=== PATIENT | female | born 1980 | race Hispanic/Latino ===

== ENCOUNTER 2017-04-30 15:48 | Emergency (ER) | payer OTHER ==
[2017-04-30 15:53] VITALS: BP 121/75; RESP 16; TEMP 97.5; O2SAT 98
--- NOTE | 2017-04-30 16:29 | ED PDOC ---
HPI: General Adult Time Seen by Provider: 04/30/17 15:54 Chief Complaint (Nursing): Flu-like Symptoms Chief Complaint (Provider): Back Pain, Body Aches, Cough History Per: Patient History/Exam Limitations: no limitations Current Symptoms Are (Timing): Still Present Additional Complaint(s): 37 year old female presents to the ED complaining of body aches, cough and lower back pain which began yesterday. The patient states that she was seen by her OBGYN and told to come into the emergency room. PMD: Sonia Massey Past Medical History Reviewed: Historical Data, Nursing Documentation, Vital Signs Vital Signs: Last Vital Signs Temp 97.5 F L 04/30/17 15:51 Pulse 108 H 04/30/17 15:51 Resp 16 04/30/17 15:51 BP 121/75 04/30/17 15:51 Pulse Ox 98 04/30/17 16:33 - Medical History PMH: No Chronic Diseases - Surgical History Surgical History: No Surg Hx - Family History Family History: States: Unknown Family Hx - Living Arrangements Living Arrangements: With Family - Social History Current smoker - smoking cessation education provided: No Ex-Smoker (has not smoked in the last 12 months): No Alcohol: None - Home Medications Home Medications: Ambulatory Orders Medication Instructions Recorded Oseltamivir [Tamiflu] 75 mg PO BID #10 cap 04/30/17 - Allergies Allergies/Adverse Reactions: Allergies Allergy/AdvReac Type Severity Reaction Status Date / Time No Known Allergies Allergy Verified 04/30/17 15:50 Review of Systems ROS Statement: Except As Marked, All Systems Reviewed And Found Negative Constitutional: Positive for: Other (body aches) Respiratory: Positive for: Cough Musculoskeletal: Positive for: Back Pain (lower) Physical Exam - Reviewed Nursing Documentation Reviewed: Yes Vital Signs Reviewed: Yes - Physical Exam Appears: Positive for: Uncomfortable Head Exam: Positive for: ATRAUMATIC, NORMAL INSPECTION Skin: Positive for: Normal Color, Warm, Dry. Negative for: Rash Eye Exam: Positive for: Normal appearance, EOMI, PERRL ENT: Positive for: Normal ENT Inspection. Negative for: Nasal Congestion, Tonsillar Exudate, Tonsillar Swelling Neck: Positive for: Normal Cardiovascular/Chest: Positive for: Regular Rate, Rhythm, Chest Non Tender. Negative for: Tachycardia Respiratory: Positive for: Normal Breath Sounds. Negative for: Rales, Rhonchi, Wheezing, Respiratory Distress Back: Positive for: Normal Inspection Extremity: Positive for: Normal ROM Neurologic/Psych: Positive for: Alert, Oriented, Gait - ECG O2 Sat by Pulse Oximetry: 98 (RA) Pulse Ox Interpretation: Normal Medical Decision Making Medical Decision Makin Initial Impression 37 y/o female presenting with cough, lower back pain and body aches Initial Plan: * Influenza A B * US OB * Reevaluation (+) IUP with FHT Case discussed with Dr. Street Documented by Radha Locke acting as a scribe for Bushra Gale PA-C. All medical record entries made by the Scribe were at my direction and personally dictated by me. I have reviewed the chart and agree that the record accurately reflects my personal performance of the history, physical exam, medical decision making, and the department course for this patient. I have also personally directed, reviewed, and agree with the discharge instructions and disposition. Disposition - Clinical Impression Clinical Impression: Influenza - Patient ED Disposition Is Patient to be Admitted: No Counseled Patient/Family Regarding: Diagnosis, Need For Followup - Disposition Disposition: Routine/Home Disposition Time: 18:21 Condition: GOOD Prescriptions: Oseltamivir [Tamiflu] 75 mg PO BID #10 cap Instructions: Influenza (ED) Forms: [employer] (Bel[place]ian)
[2017-04-30 18:25] VITALS: PULSE 93
--- NOTE | 2017-05-03 10:22 | US ---
OB , limited Comparison: None available Technique: Real-time ultrasound was performed through the pelvis. Findings: There is a single living fetus in breech presentation. Anterior placenta. The placenta is not previa. Bilateral ovaries are not identified. There are no adnexal masses or cysts evident. Cervix length measures approximately 5.0 cm and appears closed. Measurements and calculations: Fetus has a composite sonographic age of 16 weeks 1 day. This calculation is based on the biparietal diameter, head circumference, abdominal circumference, and femur length. Estimated heart rate 162.3 beats per min. Impression: Single living fetus with a composite sonographic age of 16 weeks 1 day. Estimated heart rate 162.3 beats per min. Advise an anomaly screen at 16-18 weeks gestational age.
== END 2017-04-30 18:35 | disposition home or self-care (01) ==
LOC: H.ER 15:48
DX: R05 Cough (principal); M79.1 Myalgia; M54.9 Dorsalgia, unspecified; O26.892 Other specified pregnancy related conditions, second trimester; Z3A.18 18 weeks gestation of pregnancy

== ENCOUNTER 2017-10-06 17:44 | Inpatient (IN) | payer OTHER ==
[2017-10-06 18:07] VITALS: BMI 29.9
[2017-10-06] MEDS: Lactated Ringer's 1,000 ML IV SCH ×4 (18:20→22:24)
--- NOTE | 2017-10-06 18:37 | OBHP ---
Datetime: 10/06/2017 18:23 IP Adm Impression: Term, intrauterine ; No Active Labor IP Admit Plan: Observation/Evaluation Admit Comment, IP Provider: Patient is a 37 y/o ega 39 weeks c/o uterine contractions x several hours duration. Pt reports recent gildardo of diarrhea and upset stomach. Patient PNC unremarkbale. Pt re ports uterine contraction no lof good fm. PMH depression ADHD meds PNV social deneis etoh tob NKDA ROS as per HPI otherwise neg vss afebrile p/e see notes IUP at 38 weeks early labor observtion routine labs IVF hydration vertex presentaton Pelvic Type - PN: Adequate Extremities - PN: Normal Abdomen - PN: Normal Back - PN: Not Done Breast - PN: Not Done Lungs - PN: Normal Heart - PN: Normal Thyroid - PN: Normal Neurologic - PN: Normal HEENT - PN: Normal General - PN: Normal Weight - Estimated: 71/2 Presentation-Admit: Vertex FHR - Baseline A Provider: 150 Gestation - Est Wks by US: 39.0 Pool Provider: Negative EGA AdmitDate IP: 39.0 Vital Signs Provider: Reviewed IP Chief Complaint: Uterine contractions NICHD Variability Prov Fetus A: Moderate 6-25bpm NICHD Accel Fetus A IP Provider: 15X15 FHR Category Provider Fetus A: Category I NICHD Decel Fetus A IP Provider: None Dilatation, Provider: 1 Effacement, Provider: 90 Station, Provider: -2 Genitourinary Exam: Normal DTRs - PN: Normal
[2017-10-06] MEDS ORDERED: Oxytocin 30 units/LR 500ML 30 U/500 ML BAG IV ONE ×2 (20:32→20:37)
[2017-10-06] MEDS ORDERED: Fentanyl/Bupivacaine HCl 250 ML EPI ONE (20:47)
[2017-10-06 20:55] LABS: BASO # 0.1 K/uL (0.0-0.2); BASO % 0.5 % (0.0-2.0); EOS % 0.3 % (0.0-4.0); LYMPH # 2.5 K/uL (1.0-4.3); LYMPH % 17.6 % (20.0-40.0); MEAN CELL VOLUME 90.7 fl (81.0-99.0); MEAN CORPUSCULAR HEMOGLOBIN 30.3 pg (27.0-31.0); MEAN CORPUSCULAR HGB CONC 33.4 g/dL (33.0-37.0); MEAN PLATELET VOLUME 10.6 fl (7.2-11.7); MONO % 6.7 % (0.0-10.0); NEUT # 10.8 K/uL (1.8-7.0); NEUT % 74.9 % (50.0-75.0); NRBC % 0.1 % (0.0-0.0); RBC 3.3 Mil/uL (3.80-5.20); RED CELL DISTRIBUTION WIDTH 13.9 % (11.5-14.5); WHITE BLOOD COUNT 14.4 K/uL (4.8-10.8)
[2017-10-06] MEDS ORDERED: Lidocaine 1% Inj (20ml) ONE (22:09)
[2017-10-07] MEDS ORDERED: Oxycodone/Acetaminophen 5/325 mg Tab PO PRN (00:40)
[2017-10-07] MEDS ORDERED: Benzocaine/Menthol SPRAY TOP PRN (00:40)
--- NOTE | 2017-10-07 00:49 | OBDS ---
DELIVERY PERSONNEL Delivery Doctor: Catina Rodriguez MD Structural Steel Worker: Rosario Locke RN Anesthesiologist: Deann Green MD Resident: Daria Allen MATERNAL INFORMATION Delivery Anesthesia: Epidural Medications in Delivery: Pitocin Estimated Blood Loss (ml): 100 Placenta Cultured: No Maternal Complications: None Provider Comments: delivered live baby girl at 12:19 am the baby was bulb suctioned on the perineum and transferred to [facility]. There was one loose nuchal cord. The cord was clamped and cut 3 v essels noted. Cord blod was obtained and sent to the lab. The plcenta was delivered at 12:24 am, the QBL was 100 cc there was a first degee lacereation which was repaired with 2.0 rapide. The mother fermin erated the procedure well the baby went to [facility] with 9/9 peds in attendance due to meconium LABOR SUMMARY EDC: 10/13/2017 00:00 No. Babies in Womb: 1 Attempted: No Labor Anesthesia: Epidural LABOR INFORMATION Reason for Induction: Not Applicable Onset of Labor: 10/06/2017 20:20 Complete Dilatation: 10/06/2017 21:58 Oxytocin: N/A Group B Beta Strep: Negative Antibiotics # of Doses: 0 Antibiotics Time of Last Dose: n/a Steroids Given: None Reason Steroids Not Administered: Not Applicable MEMBRANES Membranes Rupture Method: Artificial Rupture of Membranes: 10/06/2017 21:58 Length of Rupture (hrs): 2.35 Amniotic Fluid Color: Light Meconium Amniotic Fluid Amount: Moderate Amniotic Fluid Odor: Normal STAGES OF LABOR Stage 1 hrs: 1 Stage 1 min: 38 Stage 2 hrs: 2 Stage 2 min: 21 Stage 3 hrs: 0 Stage 3 min: 5 Total Time in Labor hrs: 4 Total Time in Labor min: 4 VAGINAL DELIVERY Episiotomy: None Laceration Extension: Second Degree Laceration Type: Vaginal Laceration Repair: Yes Initial Vag Sponge Count: 15 Final Vag Sponge Count: 15 Initial Vag Sharps Count: 1 Final Vag Sharps Count: 1 Sponge Count Correct: Yes Sharps Count Correct: Yes Count Comment: count correct BABY A INFORMATION Infant Delivery Date/Time: 10/07/2017 00:19 Method of Delivery: Vaginal Born in Route : No : N/A Forceps: N/A Vacuum Extraction: N/A Shoulder Dystocia : No SHOULDER DYSTOCIA BABY A Delivery Date/Time: 10/07/2017 00:19 PRESENTATION/POSITION BABY A Presentation: Cephalic PLACENTA INFORMATION BABY A Placenta Delivery Time : 10/07/2017 00:24 Placenta Method of Delivery: Spontaneous Placenta Status: Delivered SCORES BABY A Heart Rate 1 min: >100 bpm Resp Effort 1 min: Good Cry Reflex Irritability 1 min: Cough or Sneeze or Pulls Away Muscle Tone 1 min: Active Motion Color 1 min: Body [place], Extremities Blue Resuscitation Effort 1 min: Tactile Stimulation SCORE 1 MIN: 9 Heart Rate 5 min: >100 bpm Resp Effort 5 min: Good Cry Reflex Irritability 5 min: Cough or Sneeze or Pulls Away Muscle Tone 5 min: Active Motion Color 5 min: Body [place], Extremities Blue Resuscitation Effort 5 min: N/A SCORE 5 MIN: 9 INFORMATION BABY A Gestational Age at Delivery: 39.0 Gestational Status: Term Outcome : Liveborn Infant Condition : Stable Sex: Female IDENTIFICATION/MEDS BABY A ID Band Number: [id number] ID Band Location: Left Leg; Left Arm WEIGHT/LENGTH BABY A Infant Birthweight (gms): 3165 Infant Weight (lb): 7 Infant Weight (oz): 0 CORD INFORMATION BABY A No. Cord Vessels: 3 Nuchal Cord : Around Neck x1, Loose Cord Blood Taken: Yes Infant Suction: Mouth; Nose ASSESSMENT BABY A Complications: Meconium Physical Findings at Delivery: Within Normal Limits Infant Respirations: Appears Normal Percussion Tuner/ALS Called : No Care By: [place]/Dr Montez Transferred To: Remains with Mother
--- NOTE | 2017-10-07 00:52 | OBADHP ---
Datetime: 10/06/2017 18:23 Admit Comment, IP Provider: Patient is a 37 y/o ega 39 weeks c/o uterine contractions x several hours duration. Pt reports recent gildardo of diarrhea and upset stomach. Patient PNC unremarkbale. Pt re ports uterine contraction no lof good fm. PMH depression ADHD meds PNV social deneis etoh tob NKDA ROS as per HPI otherwise neg vss afebrile p/e see notes IUP at 38 weeks early labor observtion routine labs IVF hydration vertex presentaton adequate pelvis anticipate Pelvic Type - PN: Adequate Extremities - PN: Normal Abdomen - PN: Normal Back - PN: Not Done Breast - PN: Not Done Lungs - PN: Normal Heart - PN: Normal Thyroid - PN: Normal Neurologic - PN: Normal HEENT - PN: Normal General - PN: Normal Weight - Estimated: 71/2 Presentation-Admit: Vertex FHR - Baseline A Provider: 150 Gestation - Est Wks by US: 39.0 Pool Provider: Negative Vital Signs Provider: Reviewed IP Chief Complaint: Uterine contractions NICHD Variability Prov Fetus A: Moderate 6-25bpm NICHD Accel Fetus A IP Provider: [id number] FHR Category Provider Fetus A: Category I NICHD Decel Fetus A IP Provider: None Dilatation, Provider: 1 Effacement, Provider: 90 Station, Provider: -2 Genitourinary Exam: Normal DTRs - PN: Normal EGA AdmitDate IP: 39.0 IP Adm Impression: Term, intrauterine ; No Active Labor IP Admit Plan: Observation/Evaluation
[2017-10-07 03:52] VITALS: TEMP 98.3
[2017-10-07] MEDS: Benzocaine/Menthol SPRAY TOP PRN (09:00)
[2017-10-07] MEDS: Oxycodone/Acetaminophen 5/325 mg Tab PO PRN ×3 (09:06→21:30)
--- NOTE | 2017-10-07 10:37 | OBPPN ---
Datetime: 10/07/2017 06:27 PP Pain Prov: Within normal limits PP Nausea Prov: Denies PP Flatus Prov: Yes PP BM Prov: Yes PP Heart Prov: Normal PP Lungs Prov: Normal PP Abdomen/Uterus Prov: Normal PP Lochia Prov: Normal PP Extremities Prov: Normal PP Progress Prov: Normal PP Impression Prov: Normal progression PP Plan Prov: Continue present management PP Progress Note Prov: 37 y/o female s/p on 10/07/2017 at 12:19am. Patient was seen and examined at bedside this AM. Patient remains afebrile, reports mild abdominal pain, which is well co ntrolled with pain meds. Patient is ambulating and breast feeding without difficulty. Lochia is simil ar to menses. Patient has voided, +Flatus _-BM. Denies fever, chills, chest pain, dyspnea or dizzine ss. GEN: Well-appearing Cardio: S1/S2 auscultated, no murmurs Lungs: clear breath sounds b/l, no adventitious sounds auscultated Abdomen: BS appreciated; Uterus is firm and at the level of the umbilicus. Ext: calves are non-tender NEURO: AAOx3 A/P 1.Encourage and ambulating. 2.Ibuprofen 600mg q6 prn for pain. 3.Anticipated d/c home- 10/09/2017. Case discussed with OB Attending. Daria Allen PGY-[address] Massey: Patient evaluated independently and I agree with the above.
[2017-10-07 13:34] LABS: BASO % 0.2 % (0.0-2.0); EOS % 0.2 % (0.0-4.0); HEMOGLOBIN 8.8 g/dL (12.0-16.0); LYMPH # 2.9 K/uL (1.0-4.3); LYMPH % 16.1 % (20.0-40.0); MEAN CELL VOLUME 91.8 fl (81.0-99.0); MEAN CORPUSCULAR HEMOGLOBIN 30.5 pg (27.0-31.0); MEAN CORPUSCULAR HGB CONC 33.2 g/dL (33.0-37.0); MEAN PLATELET VOLUME 10.1 fl (7.2-11.7); MONO # 1.4 K/uL (0.0-0.8); MONO % 7.9 % (0.0-10.0); NEUT # 13.6 K/uL (1.8-7.0); NEUT % 75.6 % (50.0-75.0); RBC 2.89 Mil/uL (3.80-5.20); RED CELL DISTRIBUTION WIDTH 14.2 % (11.5-14.5)
[2017-10-08] MEDS: Oxycodone/Acetaminophen 5/325 mg Tab PO PRN ×3 (08:30→21:06)
--- NOTE | 2017-10-08 10:59 | OBPPN ---
Datetime: 10/08/2017 10:47 PP Pain Prov: Within normal limits PP Nausea Prov: Denies PP Flatus Prov: Yes PP BM Prov: Yes PP Breasts Prov: Normal PP Heart Prov: Normal PP Lungs Prov: Normal PP Abdomen/Uterus Prov: Normal PP Vulva/Perineum Prov: Normal PP Extremities Prov: Normal PP Progress Prov: Normal PP Comments Phys Exam Prov: Perineum: slight swelling and tenderness along suture site- wnl PP Impression Prov: Normal progression PP Plan Prov: Continue present management PP Progress Note Prov: s: states has pain per perineum and requires percocet for alleviation; denies constipation and states she had diarrhea prior to admission hgb 9.8 i: s/p vd w/ 1st degree laceration p: pt advised of addictive qualities of percocet and to take sparingly. also advised of constipati on issurs which pt states she is not concerned about due to diarrhea she prior to presentation to [facility] c dermoplast; peribottle; motrin d/w pt sitz baths. IP PP Procedures: None Vital Signs Provider PP: Within Normal Limits
[2017-10-08] MEDS: Benzocaine/Menthol SPRAY TOP PRN (16:10)
[2017-10-09] MEDS: Oxycodone/Acetaminophen 5/325 mg Tab PO PRN ×2 (01:43→08:29)
--- NOTE | 2017-10-09 08:27 | OBPPN ---
Datetime: 10/09/2017 08:21 PP Pain Prov: Within normal limits PP Abdomen/Uterus Prov: Normal PP Lochia Prov: Normal PP Progress Prov: Normal PP Impression Prov: Normal progression PP Plan Prov: Discharge PP Progress Note Prov: PPD 2 s/p , doing well, breast and bottle feeding Rx's motrin and percocet given (pt is taking perocet for perineal pain)' Pt reports that she has iron supplement at home Discharge home today Vital Signs Provider PP: Reviewed
--- NOTE | 2017-10-09 08:29 | OBDCSUM ---
Datetime: 10/09/2017 08:26 Discharged to, Provider: Home Follow up at, Provider: Josué Disch Instr Activity: Normal activity; May Shower Disch Instr Diet: Regular Discharge Instructions, Provider: Routine instructions given Discharge Diagnosis, Provider: Term Delivered Discharge Time: 10/09/2017 08:26 Follow up in weeks, Provider: 5 weeks Contraception discussed, Prov: No Disch Activity Restrictions: No exercising; No lifting; No sexual activity; Nothing in vagina - Inte rcourse, tampons, douche
[2017-10-09 19:18] VITALS: BP 124/71; PULSE 72; RESP 20; O2SAT 99
== END 2017-10-09 14:30 | disposition home or self-care (01) | DRG 775 ==
LOC: H.EROB2 17:44 → H.L&D 20:33 → H.OB/GYN 10-07 02:45
PROVIDERS: ADMIT Obstetrics & Gynecology Gynecology; ATTEND Obstetrics & Gynecology Gynecology
PROC: 4A1HXCZ Monitoring of Products of Conception, Cardiac Rate, External Approach (ICD-10-PCS; 2017-10-06)
PROC: 10E0XZZ Delivery of Products of Conception, External Approach (ICD-10-PCS; principal; 2017-10-07)
PROC: 0KQM0ZZ Repair Perineum Muscle, Open Approach (ICD-10-PCS; 2017-10-07)
DX: O70.1 Second degree perineal laceration during delivery (principal); Z37.0 Single live birth; O77.0 Labor and delivery complicated by meconium in amniotic fluid; O69.81X0 Labor and delivery complicated by cord around neck, without compression, not applicable or unspecified; Z3A.39 39 weeks gestation of pregnancy